=== PATIENT | female | born 1985 | race Caucasian/White ===

== ENCOUNTER 2020-06-18 00:58 | Emergency (ER) | payer OTHER ==
[2020-06-18 01:11] VITALS: BP 150/97; PULSE 86; TEMP 98; BMI 29.9
--- NOTE | 2020-06-18 01:15 | PDOC ---
History of Present Illness - General Chief Complaint: Chest Pain Stated Complaint: CHEST TIGHTNESS Time Seen by Provider: 06/18/20 01:15 History Source: Patient Exam Limitations: No Limitations Past History - Medical History Allergies/Adverse Reactions: Allergies Allergy/AdvReac Type Severity Reaction Status Date / Time No Known Allergies Allergy Verified 06/18/20 01:08 COPD: No - Psycho-Social/Smoking History Smoking History: Never smoked - Substance Abuse Hx (Audit-C & DAST Scrn) How often the patient has a drink containing alcohol: 2-4 times / month Score: In Men: 4 or > Positive; In Women: 3 or > Positive: 2 Screen Result (Pos requires Nsg. Audit-10AR): Negative *Physical Exam - Vital Signs Last Vital Signs Temp Pulse Resp BP Pulse Ox 98 F 86 18 150/97 98 06/18/20 01:07 06/18/20 01:07 06/18/20 01:07 06/18/20 01:07 06/18/20 01:07
--- NOTE | 2020-06-18 01:16 | PDOC ---
Attending Attestation - Resident Resident Name: Chelsy Stack - HPI HPI: 06/18/20 02:49 pt presents to the ED complaining of a brief episode of substernal chest pain, palpitations and shortness of breath. Symptoms have now almost completely resolved. Also complaining of lightheadness that worsened when she stood up. - Physicial Exam PE: 06/18/20 03:02 Agree with resident exam. Patient is alert and oriented and in no acute distres s. CV: rrr no m/r/g Pulm: CTA b/l Abdomen is soft, non tender, non distended, without guarding or rebound. - Medical Decision Making 06/18/20 03:04 Pt presents to the ED complaining of palpitations, chest pain and lightheadness. EKG shows no evidence of ischemia. HEART score is 0. PERC negative. Labs show no evidence of severe anemia or other abnormality. Will discharge home. Discharge - Discharge Information Problems reviewed: Yes Clinical Impression/Diagnosis: Palpitations, Atypical chest pain Condition: Improved Disposition: HOME - Follow up/Referral Referrals: [facility] [place] [Provider Group] - Patient Discharge Instructions Patient Printed Discharge Instructions: DI for Atypical Chest Pain Additional Instructions: You were seen in the ER today for chest pressure and palpitations. The results of your labs and imaging today were normal. Please follow-up with your primary care doctor within 1-2 days to discuss your visit and make sure your symptoms have improved. Please return to the ER if you have any worsening pain, development of fevers or chills, loss of consciousness, inability to tolerate food or fluids, or any other concerns. You can take tylenol or motrin every 4-6 hours as needed for pain. - Post Discharge Activity
[2020-06-18] MEDS ORDERED: ACETAMINOPHEN 1000 MG/100 ML VIAL (NON FORMULARY) IVPB ONE (01:55)
[2020-06-18] MEDS ORDERED: ACETAMINOPHEN INJECTION 100 ML IVPB ONE (02:09)
[2020-06-18 02:15] LABS: BASO % 0.8 % (0-2.0); EOS % 1.8 % (0-4.5); HEMATOCRIT 36.7 % (32.4-45.2); LYMPH % 24.3 % (8-40); MCH 28.4 pg (25.7-33.7); MCHC 32.8 g/dl (32.0-36.0); MEAN CELL VOLUME 86.6 fl (80-96); MEAN PLT VOLUME 6.7 fl (7.5-11.1); MONO % 8.3 % (3.8-10.2); NEUT % 64.8 % (42.8-82.8); PLATELET COUNT 437 K/MM3 (134-434); RBC 4.23 M/mm3 (3.60-5.2); RDW 13.3 % (11.6-15.6); WHITE BLOOD COUNT 8.3 K/mm3 (4.0-10.0)
[2020-06-18] MEDS ORDERED: SODIUM CHLORIDE 1,000 ML IV STA (02:26)
[2020-06-18 02:33] LABS: EPI CELLS 30 /uL (0-25.1); HYALINE CASTS 1 /uL (0-3.1); PH,URINE 6.5 (5.0-8.0); URINE APPEARANCE CLEAR; URINE BACTERIA 962 /uL (0-1359); URINE BILIRUBIN NEGATIVE (NEGATIVE); URINE COLOR YELLOW; URINE GLUCOSE (UA) NEGATIVE (NEGATIVE); URINE KETONE TRACE (NEGATIVE); URINE LEUK ESTERASE NEGATIVE (NEGATIVE); URINE NITRITE NEGATIVE (NEGATIVE); URINE PROTEIN TRACE (NEGATIVE); URINE RBC 16 /uL (0-23.9); URINE UROBILINOGEN 0.2 mg/dL (0.2-1.0); URINE WBC 17 /uL (0-25.8)
[2020-06-18 02:43] LABS: ALK PHOS 90 U/L (45-117); ANION GAP 9 MMOL/L (8-16); BILIRUBIN,TOTAL 0.2 mg/dL (0.2-1); BLOOD UREA NITROGEN 17.7 mg/dL (7-18); CALCIUM 9.1 mg/dL (8.5-10.1); CHLORIDE 104 mmol/L (98-107); CO2 25 mmol/L (21-32); CREATININE 1.2 mg/dL (0.55-1.3); GLUCOSE,RANDOM 118 mg/dL (74-106); POTASSIUM 3.7 mmol/L (3.5-5.1); SGOT/AST 17 U/L (15-37); SGPT/ALT 26 U/L (13-61); SODIUM 138 mmol/L (136-145); TOT PROT 7.6 g/dl (6.4-8.2)
--- NOTE | 2020-06-18 03:53 | PDOC ---
History of Present Illness - General Chief Complaint: Chest Pain Stated Complaint: CHEST TIGHTNESS Time Seen by Provider: 06/18/20 01:15 History Source: Patient Exam Limitations: No Limitations - History of Present Illness Initial Comments: Pt is a 35 yo F, with no significant PMH, who is presenting via private vehicle from home with an episode of chest "tightness" and palpitations an hour before presentation. Pt states she was watching TV, when she got up from the couch and experienced ~3 minutes of chest tightness with radiation of a "hotness" spreading up her neck and face. This was associated with a feeling of light- headedness and palpitations. The symptoms resolved on their own with no intervention. Pt states she has never had an episode like this before, but recently has been walking now in the morning every day. Pt denies any fevers/chills, headache, vision changes, syncope, SOB, nausea/vomiting, abdominal pain, urinary symptoms, diarrhea/constipation, or leg swelling. Allergies: NKDA PCP: None Social: Pt denies any cigarette, alcohol, or drug use. Pt denies any recent travel or sick contacts. Surgical: no relevant history. Family: no relevant history. No early cardiac or CVA. 06/18/20 19:51 Past History - Travel History Traveled outside of the country in the last 30 days: No Close contact w/someone who was outside of country & ill: No - Medical History Allergies/Adverse Reactions: Allergies Allergy/AdvReac Type Severity Reaction Status Date / Time No Known Allergies Allergy Verified 06/18/20 01:08 Home Medications: Ambulatory Orders NK [No Known Home Medication] 06/18/20 COPD: No - Psycho-Social/Smoking History Smoking History: Never smoked - Substance Abuse Hx (Audit-C & DAST Scrn) How often the patient has a drink containing alcohol: 2-4 times / month Score: In Men: 4 or > Positive; In Women: 3 or > Positive: 2 Screen Result (Pos requires Nsg. Audit-10AR): Negative Cardiac Specific PMH - Complaint Specific PMHX Abdominal Aortic Aneurysm: No Angina: No Cardiac Arrhythmia: No Cardiac Stent: No GERD: No Myocardial Infarction: No Pacemaker: No Pulmonary Embolus: No Valvular Heart Disease: No Peripheral Vascular Disease: No Review of Systems - Review of Systems Able to Perform ROS?: Yes Is the patient limited Mohawk proficient: No Constitutional: Yes: Weight Stable. No: Chills, Diaphoresis, Fever, Loss of Appetite, Malaise, Weakness HEENTM: No: Recent change in vision, Nose Congestion, Throat Pain, Difficulty Swallowing Respiratory: No: Cough, Orthopnea, Shortness of Breath Cardiac (ROS): Yes: See HPI, Chest Pain, Irregular Heart Rate, Lightheadedness, Palpitations, Chest Tightness. No: Edema, Syncope ABD/GI: No: Constipated, Diarrhea, Nausea, Poor Appetite, Poor Fluid Intake, Vo miting, Abdominal cramping : No: Burning, Dysuria, Frequency, Flank Pain, Hematuria, Pain, Urgency Musculoskeletal: No: Back Pain, Muscle Pain, Muscle Weakness Integumentary: No: Rash Neurological: No: Headache, Numbness, Weakness, Unsteady Gait, Dizziness Psychiatric: No: Anxiety, Stressors, Change in Appetite Endocrine: No: Increased Urine, Change in Weight Hematologic/Lymphatic: No: Anemia, Blood Clots, Easy Bleeding, Easy Bruising All Other Systems: Reviewed and Negative *Physical Exam - Vital Signs Last Vital Signs Temp Pulse Resp BP Pulse Ox 98 F 86 18 150/97 98 06/18/20 01:07 06/18/20 01:07 06/18/20 01:07 06/18/20 01:07 06/18/20 01:07 - Physical Exam Vitals stable, pt afebrile. Pt in NAD, overweight body habitus. Pt alert and oriented x3. technology administrator generally intact, muscular strength and sensation intact. No midline spinal tenderness, step-offs, or crepitus. Head normocephalic, atraumatic. Eyes PERRLA, EOMI. Oropharynx without erythema or exudates, no LAD b/l. No thyroid enlargement noted. No nasal congestion. Hearing intact. Clear heart sounds, S1/S2, no JVD, b/l pedal edema, or heart murmur. Clear lung sounds, no respiratory distress, wheezes, crackles, or accessory muscle use. No abdominal or CVA tenderness to palpation, no rebound, no guarding. Abdomen soft, non-distended, and with normoactive bowel sounds. Skin without jaundice or rash. 06/18/20 19:55 Heart Score/ECG Review - History History: Slightly suspicious - Electrocardiogram EKG: Normal - Age Age: </= 45 - Risk Factors Based on the list above the patient has:: No risk factors known - Troponin Troponin: </= normal limit - Score Heart Score - Total: 0 ED Treatment Course - LABORATORY CBC & Chemistry Diagram: 06/18/20 02:06 06/18/20 02:06 - ADDITIONAL ORDERS Additional order review: 06/18/20 02:06 RBC 4.23 MCV 86.6 MCHC 32.8 RDW 13.3 MPV 6.7 L Neutrophils % 64.8 Lymphocytes % 24.3 Monocytes % 8.3 Eosinophils % 1.8 Basophils % 0.8 - RADIOLOGY Radiology Studies Ordered: Category Date Time Status CHEST PA & LAT [RAD] Stat Radiology 06/18/20 01:53 Completed - Medications Given in the ED: ED Medications Discontinued Medications Generic Name Dose Route Start Last Admin Trade Name Freq PRN Reason Stop Dose Admin Acetaminophen 1,000 mg 06/18/20 01:55 06/18/20 02:11 Ofirmev Injection - IVPB 06/18/20 01:56 1,000 mg ONCE ONE Administration Sodium Chloride 1,000 mls @ 1,000 mls/hr 06/18/20 02:26 06/18/20 02:27 Normal Saline - IV 06/18/20 03:25 1,000 mls/hr ASDIR STA Administration Medical Decision Making - Medical Decision Making Pt was seen at bedside, also will be seen by attending Dr. Walton. Pt presenting with palpitations, chest tightness, pre-syncopal episode after standing from a sitting position. Pt recently started new exercise. Minimal cardiac risk factors (no smoking, HTN, DM, family hx). Will evaluate for ACS, thyroid dysfunction, electrolyte abnormalities. Provided 1 L IV NS and ofirmev for improvement of discomfort. Pt with no active "chest pain" at this time. Will continue to reassess pt and monitor for symptomatic improvement. ECG: NSR, intervals WNL, minimal criteria for LVH (tall R in I, avL). No TWIs or significant ST segment changes. No prior ECG for comparison. Labs WNL Trop <.02 with no significant ECG abnormalities, no active chest pain test negative UA likely contaminated but trace ketones, possible dehydration; consistent with orthostatic symptoms Pt improved with IVF Pt safe for d/c to home with PCP f/u. Strict return precautions provided with pt understanding. 06/18/20 19:56 Discharge - Discharge Information Problems reviewed: Yes Clinical Impression/Diagnosis: Palpitations, Atypical chest pain Condition: Improved Disposition: HOME - Admission No - Follow up/Referral Referrals: [facility] [place] [place] [Provider Group] - Patient Discharge Instructions Patient Printed Discharge Instructions: DI for Atypical Chest Pain Additional Instructions: You were seen in the ER today for chest pressure and palpitations. The results of your labs and imaging today were normal. Please follow-up with your primary care doctor within 1-2 days to discuss your visit and make sure your symptoms have improved. Please return to the ER if you have any worsening pain, development of fevers or chills, loss of consciousness, inability to tolerate food or fluids, or any other concerns. You can take tylenol or motrin every 4-6 hours as needed for pain. - Post Discharge Activity
--- NOTE | 2020-06-19 17:31 | EKG ---
Test Reason : Blood Pressure : / mmHG Vent. Rate : 072 BPM Atrial Rate : 072 BPM P-R Int : 178 ms QRS Dur : 084 ms QT Int : 388 ms P-R-T Axes : 044 020 034 degrees QTc Int : 424 ms NORMAL SINUS RHYTHM MINIMAL VOLTAGE CRITERIA FOR LVH, MAY BE NORMAL VARIANT BORDERLINE ECG NO PREVIOUS ECGS AVAILABLE Confirmed by MD Misha, Andrew ([id number]) on 06/19/2020 5:31:45 PM Referred By: Confirmed By:Andrew Cabral MD
== END 2020-06-18 04:03 | disposition home or self-care (01) ==
LOC: JER 00:58
PROC: 3E033NZ Introduction of Analgesics, Hypnotics, Sedatives into Peripheral Vein, Percutaneous Approach (ICD-10-PCS; principal; 2020-06-18)
PROC: 3E0337Z Introduction of Electrolytic and Water Balance Substance into Peripheral Vein, Percutaneous Approach (ICD-10-PCS; 2020-06-18)
DX: R00.2 Palpitations (principal); R07.89 Other chest pain
CPT/HCPCS: 36415; 71046-TC-FY; 80053; 81003; 84439; 84443; 84484; 84703; 85025; 87086; 93005; 93010; 99285-25; J0131

== ENCOUNTER 2021-07-19 14:35 | Emergency (ER) | payer OTHER ==
[2021-07-19 14:44] VITALS: BP 104/69; PULSE 95; TEMP 97; BMI 29.1
[2021-07-19] MEDS ORDERED: ACETAMINOPHEN 500 MG TABLET (FP) PO ONE (15:45)
[2021-07-19] MEDS ORDERED: ACETAMINOPHEN 500 MG TABLET (FP) ONE (15:48)
[2021-07-19 16:42] LABS: BASO % 0.4 % (0-2.0); EOS % 0.4 % (0-4.5); HEMATOCRIT 31.9 % (32.4-45.2); HEMOGLOBIN 10.8 GM/dL (10.7-15.3); LYMPH % 18.8 % (8-40); MCH 28.7 pg (25.7-33.7); MEAN CELL VOLUME 84.4 fl (80-96); MEAN PLT VOLUME 6.2 fl (7.5-11.1); MONO % 7.8 % (3.8-10.2); NEUT % 72.6 % (42.8-82.8); PLATELET COUNT 488 10^3/uL (134-434); RBC 3.78 M/mm3 (3.60-5.2); RDW 13.1 % (11.6-15.6); WHITE BLOOD COUNT 9.3 K/mm3 (4.0-10.0)
[2021-07-19 16:44] LABS: PH,URINE 8.5 (5.0-8.0); URINE APPEARANCE CLEAR; URINE BILIRUBIN NEGATIVE (NEGATIVE); URINE COLOR YELLOW; URINE GLUCOSE (UA) NEGATIVE (NEGATIVE); URINE KETONE TRACE (NEGATIVE); URINE LEUK ESTERASE NEGATIVE (NEGATIVE); URINE NITRITE NEGATIVE (NEGATIVE); URINE PROTEIN NEGATIVE (NEGATIVE)
[2021-07-19 17:44] LABS: CALCIUM 9.1 mg/dL (8.5-10.1)
[2021-07-19 17:45] LABS: BLOOD UREA NITROGEN 5.5 mg/dL (7-18)
[2021-07-19 17:48] LABS: CREATININE 0.5 mg/dL (0.55-1.3)
== END 2021-07-19 18:37 | disposition home or self-care (01) ==
LOC: JER 14:35
DX: O26.891 Other specified pregnancy related conditions, first trimester (principal); R10.30 Lower abdominal pain, unspecified; Z3A.12 12 weeks gestation of pregnancy
CPT/HCPCS: 36415; 76815-TC; 80048; 81003; 84703; 85025; 87086; 99284-25

== ENCOUNTER 2021-08-31 04:15 | Inpatient (IN) | payer OTHER ==
[2021-08-29 17:26] VITALS: BMI 32.1
[2021-08-31] MEDS ORDERED: PHENAZOPYRIDINE HCL 100 MG TABLET (FP) ONE (06:27)
[2021-08-31] MEDS ORDERED: ceFAZolin SODIUM 1 GM VIAL ONE ×3 (06:27→23:05)
[2021-08-31] MEDS ORDERED: PHENAZOPYRIDINE HCL 100 MG TABLET (FP) PO ONE ×2 (06:30→06:44)
[2021-08-31] MEDS ORDERED: CEFAZOLIN 2 GM in DEXTROSE 5%-WATER - 100 ML IVPB ONE (06:30)
[2021-08-31] MEDS ORDERED: VASOPRESSIN 20 UNITS/ML VIAL IV ONE ×2 (07:12)
[2021-08-31] MEDS ORDERED: PROPOFOL 20 ML ONE ×2 (07:23)
[2021-08-31] MEDS ORDERED: MIDAZOLAM HCL 2 MG/2 ML SINGLE DOSE VIAL ONE ×2 (07:23)
[2021-08-31] MEDS ORDERED: ROCURONIUM BROMIDE 50 MG/5 ML SYRINGE ONE (07:23)
[2021-08-31] MEDS ORDERED: LIDOCAINE HCL 2% (20ML MULTI-DOSE VIAL) ONE (07:31)
[2021-08-31] MEDS ORDERED: ROPIVACAINE HCL 0.5% 30ML VIAL ONE (07:31)
[2021-08-31] MEDS ORDERED: ceFAZolin 2 GRAM PREMIX BAG IVPB ONE (08:15)
[2021-08-31] MEDS ORDERED: HYDROmorphone HCl 2 MG/ML VIAL ONE (08:32)
[2021-08-31] MEDS ORDERED: NEOSTIGMINE METHYLSULFATE 0.5 MG/ML - 10 ML MDV ONE (09:17)
[2021-08-31] MEDS ORDERED: ONDANSETRON 4 MG/2 ML VIAL IVPUSH PRN ×2 (09:47→09:48)
[2021-08-31] MEDS ORDERED: BISACODYL 5 MG TABLET.DR (FP) PO PRN (09:48)
[2021-08-31] MEDS ORDERED: oxyCODONE HCL 5 MG TABLET PO PRN (09:48)
[2021-08-31] MEDS ORDERED: IBUPROFEN 800 MG/8 ML IJ IVPB PRN (09:48)
[2021-08-31] MEDS ORDERED: SIMETHICONE 80 MG TAB.CHEW (FP) PO PRN (09:48)
[2021-08-31] MEDS ORDERED: DOCUSATE SODIUM 100 MG CAPSULE (FP) PO PRN (09:48)
[2021-08-31] MEDS ORDERED: ACETAMINOPHEN INJECTION 100 ML IVPB ONE (10:29)
[2021-08-31] MEDS ORDERED: ACETAMINOPHEN 1000 MG/100 ML VIAL (NON FORMULARY) IVPB ONE (12:00)
[2021-08-31] MEDS: LACTATED RINGERS SOLUTION 1,000 ML IV SCH ×2 (12:04→16:51)
[2021-08-31] MEDS ORDERED: DEXTROSE 5%-WATER - 50 ML IVPB ONE ×2 (16:20→23:05)
[2021-08-31] MEDS: CEFAZOLIN 1 GM in DEXTROSE 5%-WATER - 1 GM/50 ML IVPB IVPB SCH ×2 (16:51→23:08)
[2021-08-31] MEDS: IBUPROFEN 800 MG/8 ML IJ IVPB SCH (17:33)
[2021-08-31] MEDS: ACETAMINOPHEN 325 MG TABLET (FP) PO SCH ×2 (17:34→23:07)
[2021-08-31 19:03] LABS: HEMATOCRIT 32.2 % (32.4-45.2); HEMOGLOBIN 10.5 GM/dL (10.7-15.3); MCH 26.9 pg (25.7-33.7); MCHC 32.8 g/dl (32.0-36.0); MEAN CELL VOLUME 82.2 fl (80-96); MEAN PLT VOLUME 6.6 fl (7.5-11.1); PLATELET COUNT 463 10^3/uL (134-434); RBC 3.91 M/mm3 (3.60-5.2); RDW 14.7 % (11.6-15.6); WHITE BLOOD COUNT 9.8 K/mm3 (4.0-10.0)
[2021-08-31 19:48] LABS: CALCIUM 8.5 mg/dL (8.5-10.1)
[2021-08-31 19:49] LABS: BLOOD UREA NITROGEN 10.9 mg/dL (7-18)
[2021-08-31 19:55] LABS: CREATININE 0.6 mg/dL (0.55-1.3)
[2021-09-01] MEDS: IBUPROFEN 800 MG/8 ML IJ IVPB SCH (01:38)
[2021-09-01] MEDS: LACTATED RINGERS SOLUTION 1,000 ML IV SCH ×3 (03:00→21:29)
[2021-09-01] MEDS: ACETAMINOPHEN 325 MG TABLET (FP) PO SCH (05:09)
[2021-09-01 07:04] LABS: HEMATOCRIT 27.1 % (32.4-45.2); HEMOGLOBIN 8.9 GM/dL (10.7-15.3); MCH 27.3 pg (25.7-33.7); MEAN CELL VOLUME 82.8 fl (80-96); MEAN PLT VOLUME 6.7 fl (7.5-11.1); PLATELET COUNT 425 10^3/uL (134-434); RBC 3.27 M/mm3 (3.60-5.2); RDW 14.5 % (11.6-15.6); WHITE BLOOD COUNT 7.1 K/mm3 (4.0-10.0)
[2021-09-01 07:32] LABS: CALCIUM 8.4 mg/dL (8.5-10.1)
[2021-09-01 07:33] LABS: BLOOD UREA NITROGEN 10.3 mg/dL (7-18)
[2021-09-01 07:36] LABS: CREATININE 0.5 mg/dL (0.55-1.3)
[2021-09-01] MEDS: KETOROLAC TROMETHAMINE 30 MG/1 ML VIAL IVPUSH SCH ×3 (09:14→17:14)
[2021-09-01] MEDS: ENOXAPARIN NA (PORCINE) 40 MG/0.4 ML DISP.SYRIN SQ SCH (09:19)
[2021-09-01] MEDS: ACETAMINOPHEN 500 MG TABLET (FP) PO SCH ×4 (13:40→21:28)
[2021-09-02] MEDS: KETOROLAC TROMETHAMINE 30 MG/1 ML VIAL IVPUSH SCH (01:32)
[2021-09-02] MEDS: LACTATED RINGERS SOLUTION 1,000 ML IV SCH ×3 (06:12→20:29)
[2021-09-02] MEDS: ENOXAPARIN NA (PORCINE) 40 MG/0.4 ML DISP.SYRIN SQ SCH (09:05)
[2021-09-02] MEDS: oxyCODONE HCL 5 MG TABLET PO PRN (20:28)
[2021-09-03] MEDS: LACTATED RINGERS SOLUTION 1,000 ML IV SCH (05:16)
[2021-09-03] MEDS: oxyCODONE HCL 5 MG TABLET PO PRN (05:16)
[2021-09-03 06:58] VITALS: BP 131/88; PULSE 86; TEMP 97.6
[2021-09-03] MEDS: ENOXAPARIN NA (PORCINE) 40 MG/0.4 ML DISP.SYRIN SQ SCH (09:00)
== END 2021-09-03 11:30 | disposition home or self-care (01) | DRG 519 ==
LOC: J2C 04:15 → J8W 11:48
PROVIDERS: ADMIT Obstetrics & Gynecology; ATTEND Obstetrics & Gynecology
PROC: 0UB90ZZ Excision of Uterus, Open Approach (ICD-10-PCS; principal; 2021-08-31 07:30)
DX: D25.9 Leiomyoma of uterus, unspecified (principal)
CPT/HCPCS: 36415; 71046-TC-FY; 80048; 80053; 81003; 81025; 84702; 84703; 85025; 85027; 85610; 85730; 86850; 86900; 86901; 88307-TC; 93005; 93010; 94010; 94760; C9803; J0131; U0003; U0005

== ENCOUNTER 2024-10-08 05:04 | Day surgery (SDC) | payer OTHER ==
[2024-10-08] MEDS ORDERED: PHENAZOPYRIDINE HCL 100 MG TABLET (FP) ONE (06:22)
[2024-10-08] MEDS: PHENAZOPYRIDINE HCL 100 MG TABLET (FP) PO ONE (06:33)
[2024-10-08] MEDS ORDERED: PROPOFOL 20 ML ONE (07:36)
[2024-10-08] MEDS ORDERED: ROCURONIUM BROMIDE 50 MG/5 ML SYRINGE ONE (07:36)
[2024-10-08] MEDS ORDERED: MIDAZOLAM HCL 2 MG/2 ML SINGLE DOSE VIAL ONE (07:36)
[2024-10-08] MEDS ORDERED: HYDROmorphone HCl 2 MG/ML VIAL ONE (07:36)
[2024-10-08] MEDS ORDERED: ONDANSETRON 4 MG/2 ML VIAL ONE (07:37)
[2024-10-08] MEDS ORDERED: ceFAZolin SODIUM 1 GM VIAL ONE (07:37)
[2024-10-08] MEDS ORDERED: LIDOCAINE HCL/PF 2% SDV 5ML VIAL ONE (07:37)
[2024-10-08] MEDS ORDERED: TRANEXAMIC ACID 1000 MG/10 ML VIAL ONE (07:37)
[2024-10-08] MEDS ORDERED: SEVOFLURANE 250 ML BTL ONE ×2 (07:37→07:40)
[2024-10-08] MEDS ORDERED: DEXAMETHASONE SOD PHOSPHATE 4 MG/1 ML VIAL ONE (07:37)
[2024-10-08] MEDS: ceFAZolin SODIUM 1 GM VIAL IVPB ONE (08:00)
[2024-10-08] MEDS ORDERED: SUGAMMADEX SODIUM 200 MG/2 ML VIAL ONE (08:49)
[2024-10-08] MEDS ORDERED: ACETAMINOPHEN INJECTION 100 ML ONE (08:50)
[2024-10-08] MEDS ORDERED: KETOROLAC TROMETHAMINE 30 MG/1 ML VIAL ONE (08:53)
[2024-10-08] MEDS ORDERED: oxyCODONE HCL 5 MG TABLET PO PRN ×2 (10:13)
[2024-10-08] MEDS ORDERED: ONDANSETRON 4 MG/2 ML VIAL IVPUSH PRN ×2 (10:13→10:44)
[2024-10-08] MEDS: LACTATED RINGERS SOLUTION 1,000 ML IV SCH (10:30)
[2024-10-08] MEDS ORDERED: SIMETHICONE 80 MG TAB.CHEW (FP) PO PRN (10:44)
[2024-10-08] MEDS ORDERED: DOCUSATE SODIUM 100 MG CAPSULE (FP) PO PRN (10:44)
[2024-10-08] MEDS ORDERED: BISACODYL 5 MG TABLET.DR (FP) PO PRN (10:44)
[2024-10-08] MEDS: CEFAZOLIN SODIUM 2 GM in DEXTROSE 5%-WATER 100 ML IVPB ONE (12:14)
[2024-10-08] MEDS ORDERED: ACETAMINOPHEN 1000 MG/100 ML BAG IVPB PRN (15:00)
[2024-10-08] MEDS: ACETAMINOPHEN 1000 MG/100 ML BAG IVPB SCH (15:07)
[2024-10-08] MEDS: CEFAZOLIN 1 GM in DEXTROSE 5%-WATER - 50 ML IVPB SCH (15:51)
[2024-10-08] MEDS ORDERED: CEFAZOLIN 1 GM/D5W 1 GM/50 ML BAG IVPB SCH (16:00)
[2024-10-08] MEDS ORDERED: CEFAZOLIN 1 GM in DEXTROSE 5%-WATER - 50 ML IVPB SCH (16:40)
[2024-10-08 17:23] VITALS: RESP 18
[2024-10-08] MEDS: IBUPROFEN 800 MG/8 ML IJ IVPB SCH (17:30)
[2024-10-08 18:23] LABS: HEMATOCRIT 37.7 % (32.4-45.2); HEMOGLOBIN 12.4 GM/dL (10.7-15.3); MCH 28.5 pg (25.7-33.7); MCHC 32.9 g/dl (32.0-36.0); MEAN CELL VOLUME 86.4 fl (80-96); PLATELET COUNT 356 10^3/uL (134-434); RBC 4.36 M/mm3 (3.60-5.2); RDW 13.3 % (11.6-15.6); WHITE BLOOD COUNT 8.1 K/mm3 (4.0-10.0)
[2024-10-08 18:37] LABS: POTASSIUM 4.2 mmol/L (3.5-5.1)
[2024-10-08 18:39] LABS: CALCIUM 8.9 mg/dL (8.5-10.1)
[2024-10-08 18:40] LABS: BLOOD UREA NITROGEN 10.3 mg/dL (7-18)
[2024-10-08 18:43] LABS: CREATININE 0.7 mg/dL (0.55-1.3)
[2024-10-09] MEDS: CEFAZOLIN 1 GM in DEXTROSE 5%-WATER - 50 ML IVPB SCH (00:24)
[2024-10-09 06:09] VITALS: PULSE 73
[2024-10-09 07:43] LABS: HEMATOCRIT 33.8 % (32.4-45.2); HEMOGLOBIN 11.3 GM/dL (10.7-15.3); MCH 29.2 pg (25.7-33.7); MCHC 33.4 g/dl (32.0-36.0); MEAN CELL VOLUME 87.3 fl (80-96); MEAN PLT VOLUME 7.3 fl (7.5-11.1); PLATELET COUNT 315 10^3/uL (134-434); RBC 3.87 M/mm3 (3.60-5.2); RDW 13.5 % (11.6-15.6); WHITE BLOOD COUNT 7.8 K/mm3 (4.0-10.0)
[2024-10-09 08:13] LABS: POTASSIUM 3.8 mmol/L (3.5-5.1)
[2024-10-09 08:15] LABS: BLOOD UREA NITROGEN 6.9 mg/dL (7-18); CALCIUM 8.4 mg/dL (8.5-10.1)
[2024-10-09 08:19] LABS: CREATININE 0.5 mg/dL (0.55-1.3)
[2024-10-09 09:57] VITALS: BP 115/70; TEMP 98
[2024-10-09] MEDS: ENOXAPARIN NA (PORCINE) 40 MG/0.4 ML DISP.SYRIN SQ SCH (11:05)
[2024-10-09] MEDS ORDERED: ACETAMINOPHEN 325 MG TABLET (FP) PO PRN (14:00)
== END 2024-10-09 10:20 | disposition home or self-care (01) ==
LOC: JASUSAT 05:04 → J3W 12:53 → JASUSAT 10-09 10:20
PROVIDERS: ATTEND Obstetrics & Gynecology
PROC: 8E0W4CZ Robotic Assisted Procedure of Trunk Region, Percutaneous Endoscopic Approach (ICD-10-PCS; 2024-10-08)
PROC: 0UT9FZZ Resection of Uterus, Via Natural or Artificial Opening With Percutaneous Endoscopic Assistance (ICD-10-PCS; principal; 2024-10-08 07:30)
PROC: 0UT7FZZ Resection of Bilateral Fallopian Tubes, Via Natural or Artificial Opening With Percutaneous Endoscopic Assistance (ICD-10-PCS; 2024-10-08 07:30)
DX: D25.1 Intramural leiomyoma of uterus (principal)
CPT/HCPCS: 58552; S2900; 36415; 80048; 81025; 85027; 86850; 86900; 86901; 88305-TC; 88307-TC; 94010; 94760; J0131

== ENCOUNTER 2024-12-13 12:58 | Emergency (ER) | payer OTHER ==
[2024-12-13 13:52] VITALS: BP 127/80; PULSE 68; RESP 16; TEMP 98.6; BMI 25.7
[2024-12-13] MEDS ORDERED: ASPIRIN 81 MG CHEWABLE TABLETS ONE (13:53)
[2024-12-13] MEDS: ASPIRIN 81 MG CHEWABLE TABLETS PO ONE (13:56)
[2024-12-13 14:45] LABS: HEMATOCRIT 36.2 % (32.4-45.2); HEMOGLOBIN 11.8 G/dL (10.7-15.3); MCH 28.5 pg (25.7-33.7); MCHC 32.5 g/dl (32.0-36.0); MEAN CELL VOLUME 87.6 fl (80-96); MEAN PLT VOLUME 7.3 fl (7.5-11.1); PLATELET COUNT 378.9 10^3/uL (134-434); RBC 4.13 10^6/uL (3.60-5.2); RDW 14.5 % (11.6-15.6); WHITE BLOOD COUNT 4.7 10^3/uL (4.0-10.8)
[2024-12-13 14:58] LABS: ALBUMIN 4.5 g/dl (3.4-5.0); ALK PHOS 56 U/L (45-117); ANION GAP 5 mmol/L (4-13); BILIRUBIN,TOTAL 0.4 mg/dl (0.2-1); CALCIUM 9.5 mg/dl (8.5-10.1); CHLORIDE 106 mmol/L (98-107); CO2 27 mmol/L (21-32); CREATININE 0.5 mg/dl (0.6-1.3); GLUCOSE,RANDOM 80 mg/dl (74-106); MAGNESIUM 2.1 mg/dL (1.8-2.4); POTASSIUM 4.1 mmol/L (3.5-5.1); SGOT/AST 12 U/L (15-37); SGPT/ALT 14 U/L (7-52); SODIUM 138 mmol/L (136-145); TOT PROT 6.8 g/dl (6.4-8.2)
[2024-12-13 15:21] LABS: ANISOCYTOSIS 1+; PLATELET ESTIMATE ADEQUATE
[2024-12-13 16:37] LABS: HIV INTERPRETATION NEGATIVE (NEGATIVE)
== END 2024-12-13 15:20 | disposition home or self-care (01) ==
LOC: FER 12:58
DX: R07.89 Other chest pain (principal)
CPT/HCPCS: 36415; 71046-TC-FY; 80053; 82550; 83735; 84484; 85027; 86803; 87389; 93005; 99285-25